=== PATIENT | female | born 1940 | race Caucasian/White ===

== ENCOUNTER 2016-07-27 14:23 | Emergency (ER) | payer OTHER, BC, MEDICARE ==
[~2016-07-27] VITALS: Ht 162.6 cm; Wt 70.3 kg
--- NOTE | 2016-07-27 17:00 | ED GENERAL ADULT ---
History of Present Illness General Chief Complaint: Fever Stated Complaint: COUGH/?FEVER Source: patient Exam Limitations: no limitations Allergies Coded Allergies: NO KNOWN ALLERGIES (05/18/12) Reconcile Medications Amlodipine Besylate (Unknown Strength) TABLET (Unknown Dose) PO AD BP ( Reported) Doxycycline Hyclate (Vibramycin) 100 MG CAPSULE 0 PO BID infection DAY 1-3: 2 TABS PO BID DAY 4-7: 1 TAB PO BID Triage Note: C/O NON PRODUCTIVE COUGH AND CONGESTION, FEVER AT HOME ON AND OFF FOR COUPLE WEEKS. Triage Nurses Notes Reviewed? yes HPI: Patient is a 75 year old female presents complaining of cough, fevers. Cough x 2 weeks. At times productive. Fever today up 102 today. Patient took 162mg of Aspirin, vicks today with no improvement. Pain is 0 out of 10. Patient denies chest pain, down pain, nausea, vomiting. (BRYON MOHR) Vital Signs & Intake/Output Vital Signs & Intake/Output Vital Signs Date Time Temp Pulse Resp B/P Pulse O2 O2 Flow FiO2 Ox Delivery Rate 07/27 1822 100.1 95 18 144/66 95 Room Air 07/27 1433 99.8 128 18 165/80 Room Air ED Intake and Output 07/28 0000 07/27 1200 Intake Total Output Total Balance Patient 155 lb Weight Past History Travel History Traveled to [place] past 21 day No Medical History Any Pertinent Medical History? see below for history Cardiovascular: hypertension Surgical History Surgical History: non-contributory Psychosocial History What is your primary language Yakut Tobacco Use: Never used ETOH Use: denies use Illicit Drug Use: denies illicit drug use Family History Hx Contributory? No (BRYON MOHR) Review of Systems Review of Systems Constitutional: Reports: chills, fever. EENTM: Reports: no symptoms. Respiratory: Reports: see HPI. Cardiovascular: Denies: chest pain, syncope. GI: Denies: abdominal pain, diarrhea, nausea, vomiting. Musculoskeletal: Reports: no symptoms. Skin: Reports: no symptoms. Neurological/Psychological: Reports: no symptoms. Hematologic/Endocrine: Reports: no symptoms. Immunologic/Allergic: Reports: no symptoms. (BRYON MOHR) Physical Exam Physical Exam General Appearance: well developed/nourished, alert, awake Head: atraumatic, normal appearance Eyes: Bilateral: normal appearance, PERRL, EOMI. Ears, Nose, Throat: normal pharynx, normal ENT inspection, hearing grossly normal Neck: normal inspection, supple, full range of motion Respiratory: normal breath sounds, chest non-tender, no respiratory distress, lungs clear Cardiovascular: regular rate/rhythm Gastrointestinal: soft, non-tender Back: normal inspection, normal range of motion Extremities: normal inspection, normal capillary refill, normal range of motion, no edema Neurologic/Psych: no motor/sensory deficits, awake, alert, oriented x 3, normal gait, normal mood/affect Skin: intact, normal color, warm/dry Lymphatic: no anterior cervical tavia Core Measures ACS in differential dx? No CVA/TIA Diagnosis: No Severe Sepsis Present: No Septic Shock Present: No (BRYON MOHR) Progress Differential Diagnoses I considered the following diagnoses in my evaluation of the patient: Pneumonia, bronchitis, influenza, viral upper respiratory infection, sepsis Diagnostic Imaging: Viewed by Me: Radiology Read. Discussed w/RAD: Radiology Read. CXR Impression: PATIENT: RICHARD CAMACHO PRESENT AGE: 75 PATIENT ACCOUNT NO: [id number] : 39 LOCATION: [facility] ORDERING PHYSICIAN: BRYON MORRIS SERVICE DATE: 07/27/16 EXAM TYPE: RAD - XRY-CHEST XRAY, PA AND LATERAL EXAMINATION: XR CHEST CLINICAL INFORMATION: Cough, fever to 102 COMPARISON: 05/18/2012 TECHNIQUE: Frontal and lateral views of the chest FINDINGS: Lung volumes are low. There is a retrocardiac opacity with lucency suggesting a hiatal hernia. There is subtle left perihilar opacity which could represent a developing infiltrate. No dense focal consolidation or mass. No pleural effusion or pneumothorax. Normal pulmonary vascularity. Multilevel degenerative changes of the thoracic spine. IMPRESSION: Subtle left perihilar opacity could represent developing pneumonia. There is a retrocardiac midline opacity suggesting a hiatal hernia. 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 < Electronically signed in Other Vendor System> SIGNED BY: KARLA ROE MD 07/27/161837 Initial ED EKG: none (BRYON MOHR) Plan of Care: Orders Procedure Date/time Status RAPID VIRAL INFLUENZA A 07/27 1707 Complete BLOOD CULTURE 07/27 1707 Active LACTIC ACID 07/27 1707 Complete COMPREHENSIVE METABOLIC PANEL 07/27 1707 Complete CBC WITHOUT DIFFERENTIAL 07/27 1707 Complete Laboratory Tests 07/27/16 2008: Lactic Acid Cancelled 07/27/16 1742: Anion Gap 18 H, Estimated GFR > 60, BUN/Creatinine Ratio 20.0, Glucose 130 H, Lactic Acid 1.0, Calcium 9.1, Total Bilirubin 0.6, AST 19, ALT 23, Alkaline Phosphatase 59, Total Protein 7.3, Albumin 4.4, Globulin 2.9, Albumin/Globulin Ratio 1.5, CBC w Diff NO MAN DIFF REQ, RBC 4.26, MCV 89.3, MCH 30.2, RDW 12.9, MPV 6.9 L, Gran % 85.7 H, Lymphocytes % 6.9 L, Monocytes % 7.3, Eosinophils % 0, Basophils % 0.1, Absolute Granulocytes 11.7 H, Absolute Lymphocytes 0.9 L, Absolute Monocytes 1.0 H, Absolute Eosinophils 0, Absolute Basophils 0, PUBS MCHC 33.8 Microbiology 07/27 1753 BLOOD: Blood Culture - RECD 07/27 1741 BLOOD: Blood Culture - RECD Patient's tympanic temperature 101.5F on my initial exam. No acute respiratory distress on initial exam. Case discussed with Dr. Mina. Results of x-ray, labs, influenza swab discussed with patient. Patient wants to go home. No acute respiratory distress, appears stable for discharge. Discussed with patient given her age that she is at higher risk with pneumonia, recommended close follow-up. Also instructed patient to return immediately for any worsening clinical condition. (BRYON MOHR) Departure Departure Time of Disposition: 1904 Disposition: HOME OR SELF CARE Condition: Stable Clinical Impression Primary Impression: Pneumonia Qualifiers: Pneumonia type: due to unspecified organism Laterality: left Lung location: unspecified part of lung Qualified Code: J18.9 - Pneumonia, unspecified organism Referrals: PATSY PANCHAL,AARON (PCP/Family) Additional Instructions: Take Tylenol as directed for fevers. Follow-up with your primary doctor either tomorrow or early next week for further evaluation. Call in the morning for appointment. Return to the emergency department immediately if breathing worsens, unable to stay hydrated, or worsening of symptoms. Departure Forms: Customer Survey General Discharge Information Prescriptions: Current Visit Scripts Doxycycline Hyclate (Vibramycin) 0 PO BID #20 CAP DAY 1-3: 2 TABS PO BID DAY 4-7: 1 TAB PO BID (BRYON MOHR) PA/GENERAL REPAIRER Co-Sign Statement Statement: ED Attending supervision documentation- [X] I saw and evaluated the patient. I have also reviewed all the pertinent lab results and diagnostic results. I agree with the findings and the plan of care as documented in the PA's/GENERAL REPAIRER's documentation. [] I have reviewed the ED Record and agree with the PA's/GENERAL REPAIRER's documentation. [] Additions or exceptions (if any) to the PAs/GENERAL REPAIRER's note and plan are summarized below: [] (AZUL PANCHAL,PAPI Fox) Critical Care Note Critical Care Note Critical Care Time: non-applicable (BRYON MOHR)
[2016-07-27 17:50] LABS: ABSOLUTE BASOPHIL COUNT 0 /CUMM (0.0-0.2); ABSOLUTE EOSINOPHIL COUNT 0 /CUMM (0.0-0.7); ABSOLUTE GRANULOCYTE CT 11.7 /CUMM (1.4-6.5); ABSOLUTE LYMPH COUNT 0.9 /CUMM (1.2-3.4); BASOPHIL % 0.1 % (0.0-2.0); EOSINOPHIL % 0 % (0-5); GRANULOCYTE % 85.7 % (42.2-75.2); HEMATOCRIT 38.1 % (37-47); MEAN CORPUSCULAR HGB 30.2 PG (27.0-31.0); MEAN CORPUSCULAR HGB CONC 33.8 G/DL (33.0-37.0); MEAN CORPUSCULAR VOLUME 89.3 FL (81.0-99.0); MEAN PLATELET VOLUME 6.9 FL (7.4-10.4); PLATELET COUNT 284 /CUMM (130-400); RBC DISTRIBUTION WIDTH 12.9 % (11.5-14.5); RED BLOOD CELL CT 4.26 /CUMM (4.20-5.40); WHITE BLOOD CELL COUNT 13.6 /CUMM (4.8-10.8)
[2016-07-27 18:22] VITALS: BP 144/66
--- NOTE | 2016-07-27 18:38 | RADIOLOGY REPORT ---
EXAMINATION: XR CHEST CLINICAL INFORMATION: Cough, fever to 102 COMPARISON: 05/18/2012 TECHNIQUE: Frontal and lateral views of the chest FINDINGS: Lung volumes are low. There is a retrocardiac opacity with lucency suggesting a hiatal hernia. There is subtle left perihilar opacity which could represent a developing infiltrate. No dense focal consolidation or mass. No pleural effusion or pneumothorax. Normal pulmonary vascularity. Multilevel degenerative changes of the thoracic spine. IMPRESSION: Subtle left perihilar opacity could represent developing pneumonia. There is a retrocardiac midline opacity suggesting a hiatal hernia.
[2016-07-27] MEDS ORDERED: VIBRAMYCIN100 MG PO (19:08)
[2016-07-27] MEDS ORDERED: AMLODIPINE BESYL5 M1 PO (19:14)
== END 2016-07-27 19:17 ==
LOC: ERH 14:23
PROVIDERS: Physician Assistant
DX: J18.9 Pneumonia, unspecified organism (principal)
CPT/HCPCS: 87040; 87804; 87804-59